=== PATIENT | female | born 1990 | race African-American/Black ===

== ENCOUNTER → 2023-11-16 | Outpatient (CLI) | payer OTHER ==
[2023-11-17 07:07] LABS: MUMPS VIRUS IGG ANTIBODY 40.2 AU/mL (Immune >10.9)
== END | disposition home or self-care (01) ==
LOC: LABMN 14:30
PROVIDERS: ATTEND Internal Medicine
DX: Z02.1 Encounter for pre-employment examination (principal)
CPT/HCPCS: 86706; 86735; 86762; 86765; 86787

== ENCOUNTER 2024-03-16 19:13 | Emergency (ER) | payer OTHER ==
[~2024-03-16] VITALS: Ht 172.7 cm; Wt 96.4 kg
[2024-03-16] MEDS ORDERED: FLUO-342 PO (19:20)
[2024-03-16] MEDS ORDERED: METH-812 PO (20:11)
[2024-03-16] MEDS ORDERED: IBUP-2280 PO (20:11)
[2024-03-16] MEDS: KETOROLAC TROMETHAMINE 30 MG/ML VIAL IM ONE (20:19)
[2024-03-16 20:30] VITALS: BP 129/74; PULSE 77; RESP 20; TEMP 97.3; O2SAT 99
== END 2024-03-16 22:28 | disposition home or self-care (01) ==
LOC: EMS 19:13
DX: S39.012A Strain of muscle, fascia and tendon of lower back, initial encounter (principal); M79.18 Myalgia, other site; Z79.1 Long term (current) use of non-steroidal anti-inflammatories (NSAID); Z79.899 Other long term (current) drug therapy; X58.XXXA Exposure to other specified factors, initial encounter; Y93.89 Activity, other specified; Y92.89 Other specified places as the place of occurrence of the external cause; Y99.0 Civilian activity done for income or pay
CPT/HCPCS: 99283; 96372; J1885

== ENCOUNTER 2024-06-02 19:39 | Emergency (ER) | payer OTHER ==
[~2024-06-02] VITALS: Ht 172.7 cm; Wt 93.6 kg
[~2024-06-02 19:39] MED LIST: FLUO-342 PO; IBUP-2280 PO; METH-812 PO
[2024-06-02 19:45] VITALS: TEMP 98.2
[2024-06-02] MEDS: PROPARACAINE HCL 0.5% 15 ML OPHTHALMIC SOLUTION OU ONE (20:38)
[2024-06-02] MEDS: FLUORESCEIN SODIUM 1 MG STRIP OU ONE (20:38)
[2024-06-02] MEDS: ACETAMINOPHEN 500 MG TABLET PO ONE (21:09)
[2024-06-02 21:22] VITALS: BP 118/78; PULSE 73; RESP 18; O2SAT 94
== END 2024-06-02 21:33 | disposition home or self-care (01) ==
LOC: EMS 19:40
DX: S05.91XA Unspecified injury of right eye and orbit, initial encounter (principal); Z79.1 Long term (current) use of non-steroidal anti-inflammatories (NSAID); Z79.899 Other long term (current) drug therapy; W22.8XXA Striking against or struck by other objects, initial encounter; Y93.89 Activity, other specified; Y92.89 Other specified places as the place of occurrence of the external cause; Y99.0 Civilian activity done for income or pay
CPT/HCPCS: 99283